=== PATIENT | female | born 1960 | race African-American/Black ===

== ENCOUNTER 2023-09-12 02:37 | Inpatient (IN) | payer OTHER ==
[2023-09-12] VITALS (116 sets, daily range): BP systolic 85–210; BP diastolic 50–129; PULSE 72–94; RESP 0–39; TEMP 94–98.3; O2SAT 100
[~2023-09-12] VITALS: Ht 160 cm; Wt 81.7 kg
[~2023-09-12 02:37] MED LIST: ATOR40TA70 MT; CARV6.2548 MT; CHOL-36; GLIP10TA10 MT; LEVE500T98 MT; LISI-186 MT; MYCO250C MT; P20 MT; SEMA0.258; TACR1CAP MT
[2023-09-12] MEDS ORDERED: HETASTARCH/NORMAL SALINE 500 ML PLAST..BAG IV NR (03:15)
[2023-09-12] MEDS ORDERED: NOREPINEPHRINE 8MG/250ML PMX 250 ML IV NR (03:26)
[2023-09-12] MEDS ORDERED: NOREPINEPHRINE 16 MG in DEXT 5% WATER 242 ML IV ONE (03:30)
[2023-09-12 04:28] LABS: HEMATOCRIT. 26.7 % (36.0-48.0); HEMOGLOBIN. 8.2 g/dL (12.0-16.0); MEAN CORPUSCULAR HEMOGLOBIN 29.8 pg (28.0-32.0); MEAN CORPUSCULAR HGB CONC 30.8 g/dL (31.0-37.0); MEAN CORPUSCULAR VOLUME 96.9 fL (81.0-99.0); MEAN PLATELET VOLUME 13.4 fl (7.4-10.4); RED BLOOD CELL COUNT 2.75 mill/uL (4.2-5.4); RED CELL DISTRIBUTION WIDTH 18.8 % (11.6-14.6); WHITE BLOOD COUNT 5.2 x1000/uL (4.5-11.0)
[2023-09-12 04:45] LABS: INR 1.2; PARTIAL THROMBOPLASTIN TIME 57.6 sec (23.4-31.0); PROTHROMBIN TIME 12.4 sec (9.6-11.0)
[2023-09-12 04:48] LABS: VANCOMYCIN TROUGH 19.1 ug/mL (5.0-10.0)
[2023-09-12 04:52] LABS: ALANINE AMINOTRANSFERASE 9 IU/L (10-49); AMYLASE 116 IU/L (30-118); ASPARTATE AMINOTRANSFERASE 9 IU/L (<34); BILIRUBIN DIRECT 0.2 mg/dL (<=3.0); BILIRUBIN TOTAL 0.3 mg/dL (0.1-1.0); CALCIUM 8.2 mg/dL (8.7-10.4); CARBON DIOXIDE 25 mEq/L (21-32); CHLORIDE 104 mEq/L (98-107); CREATINE KINASE 32 IU/L (34-145); CREATINE KINASE MB FRACTION 0.6 ng/mL (0.5-3.6); CREATININE 3.6 mg/dL (0.6-1.0); GLUCOSE 296 mg/dL (70-105); LACTATE DEHYDROGENASE 518 IU/L (120-246); PHOSPHORUS 4.4 mg/dL (2.5-4.9); SODIUM 138 mEq/L (136-145); UREA NITROGEN BLOOD 32 mg/dL (9-23)
[2023-09-12 05:05] LABS: DIFFERENTIAL COMMENT 1
[2023-09-12 05:06] LABS: BG BASE EXCESS -2.3 mmol/L (-2.0-2.0); BG CARBOXYHEMOGLOBIN 0.3 % (0.5-1.5); BG DEOXYHEMOGLOBIN 1.1 % (0.0-5.0); BG FRACTION INSPIRED OXYGEN 100; BG HCO3 ACT 20.3 mmol/L (22.0-26.0); BG METHEMOGLOBIN 0.2 % (0.0-1.5); BG OXYGEN SATURATION 98.9 % (92.0-98.5); BG OXYHEMOGLOBIN 98.4 % (94.0-97.0); BG PCO2 27.1 mmHg (35.0-45.0); BG PH 7.492 (7.350-7.450); BG PO2 147.4 mmHg (75.0-100.0); BG SAMPLE SITE ALINE; BG TOTAL HEMOGLOBIN 8.9 g/dL (12.0-18.0); BG TOTAL RESPIRATORY RATE 14 b/min; BG VENT MODE VENT - AC
[2023-09-12 05:11] LABS: TROPONIN I HIGH SENSITIVITY 136 ng/L (3.0-34)
[2023-09-12] MEDS: VASOPRESSIN 20 UNIT in SODIUM CHLORIDE 0.9% 99 ML IV NR ×2 (05:20→17:52)
[2023-09-12] MEDS ORDERED: NOREPINEPHRINE 8MG/250ML PMX 250 ML IV PRN (05:45)
[2023-09-12] MEDS ORDERED: ALBUMIN HUMAN 12.5G/250ML (5%) IV NR (06:15)
[2023-09-12] MEDS ORDERED: DOBUTAMINE 250MG PREMIX 250 ML IV PRN (07:00)
[2023-09-12 07:32] LABS: BG BASE EXCESS 0.2 mmol/L (-2.0-2.0); BG CARBOXYHEMOGLOBIN 0.3 % (0.5-1.5); BG DEOXYHEMOGLOBIN 1.5 % (0.0-5.0); BG FRACTION INSPIRED OXYGEN 50; BG HCO3 ACT 21.1 mmol/L (22.0-26.0); BG METHEMOGLOBIN 0.2 % (0.0-1.5); BG OXYGEN SATURATION 98.5 % (92.0-98.5); BG PCO2 22.5 mmHg (35.0-45.0); BG PH 7.589 (7.350-7.450); BG PO2 122.8 mmHg (75.0-100.0); BG SAMPLE SITE ALINE; BG TOTAL HEMOGLOBIN 9.2 g/dL (12.0-18.0); BG TOTAL RESPIRATORY RATE 39 b/min; BG VENT MODE VENT - APRV
[2023-09-12] MEDS: FAMOTIDINE 20MG/2ML VIAL IV SCH ×2 (09:13→20:48)
[2023-09-12 09:18] LABS: BG BASE EXCESS -1.5 mmol/L (-2.0-2.0); BG CARBOXYHEMOGLOBIN 0.3 % (0.5-1.5); BG DEOXYHEMOGLOBIN 0.7 % (0.0-5.0); BG FRACTION INSPIRED OXYGEN 40; BG HCO3 ACT 20.6 mmol/L (22.0-26.0); BG METHEMOGLOBIN 0.3 % (0.0-1.5); BG OXYGEN SATURATION 99.3 % (92.0-98.5); BG OXYHEMOGLOBIN 98.7 % (94.0-97.0); BG PH 7.516 (7.350-7.450); BG PO2 184.2 mmHg (75.0-100.0); BG SAMPLE SITE RIGHT RADIAL; BG TOTAL HEMOGLOBIN 9.7 g/dL (12.0-18.0); BG TOTAL RESPIRATORY RATE 21 b/min; BG VENT MODE VENT - APRV
[2023-09-12 11:21] LABS: ANISOCYTOSIS 2+; HYPOCHROMASIA 1+; PLATELET ESTIMATE MARKEDLY DECREASED
[2023-09-12 11:22] LABS: PLATELET 41 x1000/uL (130-400)
[2023-09-12] MEDS ORDERED: METHYLPREDNISOLONE SOD SUCC IV NR ×2 (11:30→12:00)
[2023-09-12] MEDS ORDERED: THIAMINE HCL 100 MG/1 ML 2ML VIAL IV NR (11:30)
[2023-09-12] MEDS ORDERED: WATER IV NR (12:00)
[2023-09-12] MEDS ORDERED: DEXT 5% IV NR (12:00)
[2023-09-12] MEDS ORDERED: IOHEXOL-300 100 ML BOTTLE ONE (12:15)
[2023-09-12 12:48] LABS: BG BASE EXCESS -3.5 mmol/L (-2.0-2.0); BG CARBOXYHEMOGLOBIN 0.3 % (0.5-1.5); BG DEOXYHEMOGLOBIN 2.1 % (0.0-5.0); BG FRACTION INSPIRED OXYGEN 40; BG HCO3 ACT 21.5 mmol/L (22.0-26.0); BG METHEMOGLOBIN 0.3 % (0.0-1.5); BG OXYGEN SATURATION 97.9 % (92.0-98.5); BG OXYHEMOGLOBIN 97.3 % (94.0-97.0); BG PCO2 38.2 mmHg (35.0-45.0); BG PH 7.368 (7.350-7.450); BG SAMPLE SITE ALINE; BG TOTAL HEMOGLOBIN 8.8 g/dL (12.0-18.0); BG VENT MODE VENT - APRV
[2023-09-12] MEDS ORDERED: DEXTROSE 50% WATER 50ML SYRINGE IV PRN ×2 (14:45)
[2023-09-12] MEDS ORDERED: INSULIN REGULAR 100U/100ML PMX 100 ML IV SCH (15:00)
[2023-09-12] MEDS: BLOOD SUGAR DIAGNOSTIC STRIP TEST SCH ×8 (15:17→22:15)
[2023-09-12 15:28] LABS: BASOPHILS % 0.2 % (0.0-2.0); EOSINOPHILS % 0.7 % (0.0-5.0); HEMATOCRIT. 24.3 % (36.0-48.0); HEMOGLOBIN. 7.5 g/dL (12.0-16.0); LYMPHOCYTES % 8.7 % (20.0-50.0); MEAN CORPUSCULAR HEMOGLOBIN 30.1 pg (28.0-32.0); MEAN CORPUSCULAR HGB CONC 30.8 g/dL (31.0-37.0); MEAN CORPUSCULAR VOLUME 97.7 fL (81.0-99.0); MONOCYTES % 6.9 % (2.0-8.0); NEUTROPHILS % 83.5 % (40.0-76.0); RED BLOOD CELL COUNT 2.49 mill/uL (4.2-5.4); RED CELL DISTRIBUTION WIDTH 19.1 % (11.6-14.6); WHITE BLOOD COUNT 3.8 x1000/uL (4.5-11.0)
[2023-09-12] MEDS ORDERED: VASOPRESSIN 20 UNIT in SODIUM CHLORIDE 0.9% 99 ML IV PRN (15:30)
[2023-09-12 15:32] LABS: DIFFERENTIAL COMMENT 1; PLATELET 34 x1000/uL (130-400)
[2023-09-12 15:36] LABS: INR 1.2; PARTIAL THROMBOPLASTIN TIME 56.5 sec (23.4-31.0); PROTHROMBIN TIME 12.6 sec (9.6-11.0)
[2023-09-12 15:40] LABS: ALANINE AMINOTRANSFERASE 10 IU/L (10-49); ALBUMIN 2.5 g/dL (3.2-4.8); AMYLASE 84 IU/L (30-118); ASPARTATE AMINOTRANSFERASE 10 IU/L (<34); BILIRUBIN DIRECT 0.3 mg/dL (<=3.0); BILIRUBIN TOTAL 0.5 mg/dL (0.1-1.0); CALCIUM 8.7 mg/dL (8.7-10.4); CARBON DIOXIDE 24 mEq/L (21-32); CHLORIDE 104 mEq/L (98-107); CREATINE KINASE 36 IU/L (34-145); CREATINE KINASE MB FRACTION 0.5 ng/mL (0.5-3.6); CREATININE 3.8 mg/dL (0.6-1.0); GLUCOSE 236 mg/dL (70-105); LACTATE DEHYDROGENASE 555 IU/L (120-246); PHOSPHORUS 5.8 mg/dL (2.5-4.9); POTASSIUM 4.3 mEq/L (3.5-5.1); PROTEIN TOTAL 4.4 g/dL (6.0-8.3); SODIUM 137 mEq/L (136-145); UREA NITROGEN BLOOD 36 mg/dL (9-23)
[2023-09-12 15:50] LABS: TROPONIN I HIGH SENSITIVITY 152 ng/L (3.0-34)
[2023-09-12] MEDS: PIPERACILLIN/TAZO 3.375G/50ML 50 ML IV SCH ×2 (17:23→20:48)
[2023-09-12 18:12] LABS: HEMATOCRIT. 25.2 % (36.0-48.0); MEAN CORPUSCULAR HEMOGLOBIN 30.7 pg (28.0-32.0); MEAN CORPUSCULAR HGB CONC 31.8 g/dL (31.0-37.0); MEAN CORPUSCULAR VOLUME 96.5 fL (81.0-99.0); MEAN PLATELET VOLUME 13.8 fl (7.4-10.4); RED BLOOD CELL COUNT 2.62 mill/uL (4.2-5.4); RED CELL DISTRIBUTION WIDTH 18.9 % (11.6-14.6)
[2023-09-12 18:14] LABS: DIFFERENTIAL COMMENT 1; PLATELET 35 x1000/uL (130-400)
[2023-09-12 18:23] LABS: INR 1.2; PARTIAL THROMBOPLASTIN TIME 53.5 sec (23.4-31.0); PROTHROMBIN TIME 12.6 sec (9.6-11.0)
[2023-09-12 18:31] LABS: PLATELET ESTIMATE MARKEDLY DECREASED
[2023-09-12 18:32] LABS: ANISOCYTOSIS 1+
[2023-09-12 18:42] LABS: ALANINE AMINOTRANSFERASE 10 IU/L (10-49); ALBUMIN 2.5 g/dL (3.2-4.8); AMYLASE 87 IU/L (30-118); ASPARTATE AMINOTRANSFERASE 9 IU/L (<34); BILIRUBIN DIRECT 0.3 mg/dL (<=3.0); BILIRUBIN TOTAL 0.5 mg/dL (0.1-1.0); CALCIUM 8.7 mg/dL (8.7-10.4); CARBON DIOXIDE 23 mEq/L (21-32); CHLORIDE 104 mEq/L (98-107); CREATINE KINASE 36 IU/L (34-145); CREATINE KINASE MB FRACTION 0.7 ng/mL (0.5-3.6); CREATININE 3.9 mg/dL (0.6-1.0); GLUCOSE 242 mg/dL (70-105); LACTATE DEHYDROGENASE 593 IU/L (120-246); POTASSIUM 4.7 mEq/L (3.5-5.1); PROTEIN TOTAL 4.5 g/dL (6.0-8.3); SODIUM 136 mEq/L (136-145); UREA NITROGEN BLOOD 37 mg/dL (9-23)
[2023-09-12 18:54] LABS: TROPONIN I HIGH SENSITIVITY 152 ng/L (3.0-34)
[2023-09-12] MEDS ORDERED: METHYLPREDNISOLONE SOD SUCC 40MG VIAL IV ONE (19:00)
[2023-09-12] MEDS ORDERED: THIAMINE HCL 100 MG/1 ML 2ML VIAL IV SCH (19:00)
[2023-09-12 19:41] LABS: BG BASE EXCESS -2.8 mmol/L (-2.0-2.0); BG CARBOXYHEMOGLOBIN 0.3 % (0.5-1.5); BG DEOXYHEMOGLOBIN 1.6 % (0.0-5.0); BG FRACTION INSPIRED OXYGEN 40; BG HCO3 ACT 21.9 mmol/L (22.0-26.0); BG METHEMOGLOBIN 0.3 % (0.0-1.5); BG OXYGEN SATURATION 98.4 % (92.0-98.5); BG OXYHEMOGLOBIN 97.8 % (94.0-97.0); BG PCO2 37.6 mmHg (35.0-45.0); BG PH 7.384 (7.350-7.450); BG PO2 139.7 mmHg (75.0-100.0); BG SAMPLE SITE ALINE; BG TOTAL HEMOGLOBIN 7.5 g/dL (12.0-18.0); BG VENT MODE VENT - APRV
[2023-09-12] MEDS ORDERED: METHYLPREDNISOLONE 500 MG in D5W 100 ML IV SCH (20:00)
[2023-09-12] MEDS ORDERED: FAMOTIDINE 20MG/2ML VIAL IV SCH (21:00)
== END 2023-09-12 23:00 | DRG 133 ==
LOC: CVICU 02:37
PROVIDERS: ADMIT Internal Medicine
DX: J96.01 Acute respiratory failure with hypoxia (principal); I46.9 Cardiac arrest, cause unspecified; E11.10 Type 2 diabetes mellitus with ketoacidosis without coma; G93.41 Metabolic encephalopathy; I21.A1 Myocardial infarction type 2; G93.1 Anoxic brain damage, not elsewhere classified; N18.6 End stage renal disease
CPT/HCPCS: 36415; 36600; 71045; 74177; 80053; 80202; 82150; 82248; 82375; 82550; 82553; 82805; 82962; 82977; 83615; 83735; 84100; 84484; 85025; 86850; 86900; 86920; 87070; 93005; 94003; J1815; J2543; J2930; J3411; J3490; J7050; J7060; P9016; P9041; Q9967